=== PATIENT | male | born 1940 | race Caucasian/White ===

== ENCOUNTER 2020-12-23 14:27 | Outpatient (CLI) | payer OTHER | END 2020-12-23 14:32 | disposition home or self-care (01) | LOC: SONOGRAMA 14:27 | PROVIDERS: ATTEND Specialist/Technologist, Other Nephrology | DX: N28.89 Other specified disorders of kidney and ureter (principal); R10.84 Generalized abdominal pain; N18.30 Chronic kidney disease, stage 3 unspecified; R31.29 Other microscopic hematuria ==

== ENCOUNTER 2021-10-29 10:35 | Outpatient (CLI) | payer OTHER | END 2021-10-29 10:37 | disposition home or self-care (01) | LOC: SONOGRAMA 10:35 | DX: R31.29 Other microscopic hematuria (principal) ==